=== PATIENT | female | born 1970 | race Caucasian/White ===

== ENCOUNTER 2020-02-09 21:33 | Emergency (ER) | payer OTHER, SELFPAY ==
[2020-02-09 21:56] VITALS: BP 165/96; PULSE 82; RESP 18; TEMP 36.7; O2SAT 96; BMI 37.1
[2020-02-09 22:01] VITALS: RESP 18
--- NOTE | 2020-02-09 22:34 | ED_ITS ---
HPI - Skin/Abscess/Foreign Bdy General: Chief complaint: Skin/Abscess/Foreign Body Stated complaint: spider bite/ painful Time Seen by Provider: 02/09/20 22:15 Source: patient Mode of arrival: ambulatory Limitations: no limitations History of Present Illness: HPI narrative: Patient comes in with an area of swelling and ecchymosis to the right inner upper arm. Patient noted the wound this afternoon when she felt tenderness to that area. Review of Systems General: Reports: 10 or more systems reviewed and unremarkable except in HPI and below Skin/Breast: Reports: changes in skin color Physical Exam Const: COMMON NORMALS: no acute distress and patient oriented x3 GENERAL APPEARANCE: cooperative HENMT: COMMON NORMALS: normocephalic and Normal external nose present HEAD & SCALP: normal to inspection and normocephalic NOSE: Normal external nose present MOUTH: Normal oral and palatal mucosa present Eye: GENERAL EYE: appearance normal, both eyes and all related structures Neck/C-Spine: COMMON NORMALS: full ROM Chest: COMMONS NORMALS: normal inspection of the chest Resp: COMMON NORMALS: normal respiratory effort EFFORT & INSPECTION: Yes able to speak in complete sentences Cardio: COMMON NORMALS: regular rate and regular rhythm RATE: regular rate RHYTHM: regular rhythm GI: COMMON NORMALS: non-tender Back/Pelvis: COMMON NORMALS: thoracic and lumbar spine normal to inspection Extremity: COMMON NORMALS: normal to inspection Neuro: COMMON NORMALS: patient oriented x3 and moves all extremities Psych: COMMON NORMALS: mental status grossly normal and cooperative Skin: NARRATIVE SKIN EXAM: 2 cm ecchymotic area to the right upper arm. With a central crusted lesion. No lymph angina is noted. No fluctuance is noted to the wound. Course Vital Signs: Vital signs: Vital Signs Temperature 98.1 F 02/09/20 21:56 Pulse Rate 82 02/09/20 21:56 Respiratory Rate 18 02/09/20 21:56 Blood Pressure 165/96 02/09/20 21:56 Pulse Oximetry 96 02/09/20 21:56 MDM - Skin/Abscess/Foreign Bdy [facility] Narrative: Medical decision making narrative: Patient presents with a probable insect bite to the right upper arm. Exam notes a 2 cm area of ecchymosis with a central crusted punctate lesion. Vital signs are normal. Patient reports tetanus is up-to-date. Differential diagnosis includes staph infection, insect bite with local reaction, cellulitis, abscess. Reviewed exam with patient recommendations for treatment of triamcinolone mupirocin cream and ointment. Recommended cool compresses to the area and following up with primary care in 3 to 5 days for recheck. Discharge Plan Discharge Patient Disposition: Home Clinical Impression: Insect bite of right upper arm with local reaction Qualifiers: Encounter type: initial encounter Qualified Code(s): S40.861A - Insect bite (nonvenomous) of right upper arm, initial encounter Condition: Stable Prescriptions: New triamcinolone acetonide 0.1 % cream 1 applic TOPICAL BID Qty: 30 RF: 0 mupirocin 2 % ointment 1 applic TOPICAL BID Qty: 22 RF: 0 Discharge Orders: Discharge Order (Routine); Ordered 02/09/20 Ordered By: Germán Velazquez Referrals: Jacob Suggs MD [Primary Care Provider] - Discharge Diet: Usual diet Discharge Activity: Increase activity as tolerated Patient Instructions: Insect Bite or Sting (ED) Activity Restrictions/Additional Instructions: Use acetaminophen and ibuprofen for pain. Use cool compresses to the area for comfort. Use steroid and antibiotic ointment twice a day as directed. Avoid injury to the site. Follow-up with primary care in 3 to 5 days. Return to the emergency department for new concerns. Coding Level of Care Code ED Refractory Worker for Davy Bruno Exam Comprehensive
[2020-02-09] MEDS: triamcinolone 0.1% cream 15 gm 1 APPLIC TOPICAL (23:03)
[2020-02-09] MEDS: mupirocin oint 22 gm 1 APPLIC TOPICAL (23:07)
== END 2020-02-09 23:10 | disposition home or self-care (01) ==
PROVIDERS: Emergency Provider Nurse Practitioner Family; PCP Family Medicine
DX: S40.861A Insect bite (nonvenomous) of right upper arm, initial encounter (principal); W57.XXXA Bitten or stung by nonvenomous insect and other nonvenomous arthropods, initial encounter
CPT/HCPCS: 12345; 99281; 99282

== ENCOUNTER → 2021-03-20 17:30 | Outpatient (BNVA) | payer OTHER, SELFPAY | PROVIDERS: PCP Family Medicine; Visit Provider Nurse Practitioner Family | DX: Z20.822 Contact with and (suspected) exposure to COVID-19 (principal) | CPT/HCPCS: 87635 ==

== ENCOUNTER 2021-08-08 22:16 | Emergency (ER) | payer OTHER, SELFPAY ==
[2021-08-08 22:20] VITALS: BP 158/101; PULSE 94; RESP 20; TEMP 36.5; O2SAT 97; BMI 32.3
--- NOTE | 2021-08-08 22:32 | CTR_ITS ---
PROCEDURE INFORMATION: Exam: CT Head Without Contrast Exam date and time: 08/08/2021 10:32 PM Age: 50 years old Clinical indication: Injury or trauma; Fall; Blunt trauma (contusions or hematomas); Patient HX: Patient fell down stairs at home hitting head on the way down. C/O pain to top and left side of head with neck pain. ; Additional info: Fall down stairs and hit head, no loc TECHNIQUE: Imaging protocol: Computed tomography of the head without contrast. Radiation optimization: All CT scans at this facility use at least one of these dose optimization techniques: automated exposure control; mA and/or kV adjustment per patient size (includes targeted exams where dose is matched to clinical indication); or iterative reconstruction. COMPARISON: No relevant prior studies available. RADIATION DOSE METRICS: Total DLP (mGy-cm): 760.08 FINDINGS: Brain: Normal. No hemorrhage. Unremarkable white matter. No mass effect. Cerebral ventricles: No ventriculomegaly. Paranasal sinuses: Visualized sinuses are unremarkable. No fluid levels. Mastoid air cells: Visualized mastoid air cells are well aerated. Bones/joints: Unremarkable. No acute fracture. Soft tissues: Unremarkable. CT/CT head wo con* [id number] IMPRESSION: No acute intracranial abnormality.
--- NOTE | 2021-08-08 22:32 | XRR_ITS ---
PROCEDURE INFORMATION: Exam: XR Right Wrist Exam date and time: 08/08/2021 10:32 PM Age: 50 years old Clinical indication: Pain; Wrist; Right; Additional info: Fall down stairs wrist pain w/ deformity TECHNIQUE: Imaging protocol: XR Right wrist. Views: 3 or more views. COMPARISON: No relevant prior studies available. FINDINGS: Bones/joints: Displaced ulnar styloid process fracture. Horizontal fracture through the dorsal aspect of the distal radial metaphysis with displaced dorsal fracture fragments. Intra-articular fracture involving the distal radius with displacement of a 2.2 x 1.0 cm fracture fragment dorsally and medially. Soft tissues: Normal. XR/XR wrist RT min 3V* [id number] IMPRESSION: 1. Displaced ulnar styloid process fracture. 2. Horizontal fracture through the dorsal aspect of the distal radial metaphysis with displaced dorsal fracture fragments. 3. Intra-articular fracture involving the distal radius with displacement of a 2.2 x 1.0 cm fracture fragment dorsally and medially.
--- NOTE | 2021-08-08 22:32 | XRR_ITS ---
PROCEDURE INFORMATION: Exam: XR Right Foot Exam date and time: 08/08/2021 10:32 PM Age: 50 years old Clinical indication: Pain; Foot; Right; Additional info: Fall down stairs with mid foot pain TECHNIQUE: Imaging protocol: XR Right foot. Views: 3 or more views. COMPARISON: No relevant prior studies available. FINDINGS: Bones/joints: Slightly displaced 4 mm intra-articular fracture involving the lateral base of the great toe distal phalanx. Soft tissues: Normal. XR/XR foot RT min 3V* [id number] IMPRESSION: Slightly displaced 4 mm intra-articular fracture involving the lateral base of the great toe distal phalanx.
--- NOTE | 2021-08-08 22:32 | CTR_ITS ---
PROCEDURE INFORMATION: Exam: CT Cervical Spine Without Contrast Exam date and time: 08/08/2021 10:32 PM Age: 50 years old Clinical indication: Injury or trauma; Fall; Blunt trauma; Patient HX: Patient fell down stairs at home hitting head on the way down. C/O pain to top and left side of head with neck pain. ; Additional info: Fall down stairs w/ neck pain TECHNIQUE: Imaging protocol: Computed tomography images of the cervical spine without contrast. Radiation optimization: All CT scans at this facility use at least one of these dose optimization techniques: automated exposure control; mA and/or kV adjustment per patient size (includes targeted exams where dose is matched to clinical indication); or iterative reconstruction. COMPARISON: CT head wo con* [id number] 08/08/2021 11:49 PM RADIATION DOSE METRICS: Total DLP (mGy-cm): 546.6 FINDINGS: Bones/joints: Mild to moderate multilevel spine degenerative changes including degenerative disc disease, spondylosis and facet degenerative changes. Discs/Spinal canal/Neural foramina: Multilevel bilateral foraminal stenosis. Lungs: Lung apices are normal. Soft tissues: Unremarkable. CT/CT cervical spin wo con* [id number] IMPRESSION: Multilevel bilateral foraminal stenosis.
--- NOTE | 2021-08-08 22:34 | ED_ITS ---
HPI - Extremity Problem General: Chief complaint: Extremity Injury, Upper Stated complaint: Fall Time Seen by Provider: 08/08/21 22:27 History of Present Illness: Patient is a 50-year-old female comes to the ED after having a fall. Injury occurred just prior to arrival. Patient says she was walking down her steps in her small dog walked under her foot causing her to trip and fall. Patient was approximately 8-9 steps up above the ground in her house. She fell and the top of her head hit the wall. She denies any loss of consciousness but states she did see stars. Here in the ED she has pain at the top of her head, neck pain, right wrist pain and right foot pain. She stat es that the pain at the top of her head is bothering her the most right now. She has a visible deformity to right wrist. Pain is rated a 10 out of 10. She is not on any blood thinners. Denies any neurological symptoms such as vision changes, numbness tingling to face or extremities or any weakness to extremities. Right foot pain is located in the midfoot. She did not take anything for pain before coming to the ED. Associated symptoms: Deny chest pain, fever(s) or rash Review of Systems Const: Denies: fever(s), chills or fatigue Eyes: Denies: change in vision or eye discomfort ENMT: Denies: throat pain, odynophagia, nasal discharge or nasal congestion Card: Denies: chest pain, palpitations, edema, swelling of feet/ankles, dyspnea on exertion or orthopnea Resp: Denies: dyspnea, productive cough or non-productive cough GI: Denies: abdominal pain, nausea, vomiting, diarrhea, constipation or hematochezia : Denies: flank pain, dysuria or hematuria Musc: Reports: neck pain, extremity pain (right wrist and right mid foot) and deformity (right wrist); Denies: back pain or extremity swelling Skin/Breast: Denies: rash or new lesions Neuro: Reports: headache(s) (Pain on top of head); Denies: numbness in extremities or weakness in extremities [facility] ED PFSH: Medical History No pertinent family history Surgical History No pertinent past surgical history Social History Smoking and tobacco status: never smoked Physical Exam Const: COMMON NORMALS: patient oriented x3 and alert GENERAL APPEARANCE: cooperative and comfortable HENMT: COMMON NORMALS: normocephalic HEAD & SCALP: normocephalic and scalp tenderness (Vertex of scalp); no abrasion, no Duke's sign, no laceration and no raccoon eyes FACE & SINUS: normal facial exam MOUTH: Normal oral and palatal mucosa present THROAT: posterior oropharynx normal and uvula midline Eye: COMMON NORMALS: Equal, round and reactive pupils present and conjunctivae normal CONJUNCTIVA: Yes conjunctivae normal PUPIL: Yes Equal, round and reactive pupils present Neck/C-Spine: COMMON NORMALS: supple GENERAL: Yes normal visual inspection CERVICAL SPINE: Yes pain with cervical ROM, Yes Paracervical muscle tenderness left and Yes Trapezius muscle tenderness left Resp: COMMON NORMALS: normal respiratory effort, No retractions, No use of a ccessory muscles and clear to auscultation bilaterally AUSCULTATION: clear to auscultation bilaterally Cardio: COMMON NORMALS: regular rate, regular rhythm, S1 normal heart sound present, S2 normal heart sound present, No gallops present (Cardio), No clicks present (Cardio), No murmurs present (Cardio) and Peripheral pulses 2+ throughout RATE: regular rate RHYTHM: regular rhythm HEART SOUNDS: S1 normal heart sound present and S2 normal heart sound present PERIPHERAL PULSES: Peripheral pulses 2+ throughout GI: COMMON NORMALS: Normal to inspection, nondistended, normoactive bowel sounds present, Soft to palpation, non-tender and no masses PALPATION: Yes Soft to palpation : COMMON NORMALS: Yes no CVA tenderness BLADDER/KIDNEY EXAM: Yes no CVA tenderness Back/Pelvis: COMMON NORMALS: no CVA tenderness Extremity: GENERAL: Yes normal exam except as noted RIGHT UPPER EXTREMITY: Yes wrist Right wrist: Yes inspection (Ecchymosis, swelling and visible deformity), Yes palpation (Tenderness over radial and ulnar aspect of wrist), Yes ROM (No range of motion due to pain) and Yes neurovascular exam (Intact) RIGHT LOWER EXTREMITY: Yes foot & digits Right foot and digits: Yes inspection (No visible deformity, ecchymosis or swelling seen), Yes palpation (Tenderness over midfoot), Yes ROM (Full range of motion) and Yes neurovascular exam (Neurovascular intact.) Neuro: COMMON NORMALS: patient oriented x3, CN's II-XII intact bilaterally, moves all extremities, no focal motor deficits and no sensory deficits noted SENSORIUM/ORIENTATION: Yes alert SENSORY EXAM: Yes extremities (intact) MOTOR EXAM: 5/5 motor strength present throughout Skin: GENERAL SKIN EXAM: dry skin Course Vital Signs: Vital signs: Vital Signs Temperature 97.8 F 08/09/21 00:56 Pulse Rate 88 08/09/21 00:56 Respiratory Rate 18 08/09/21 00:56 Blood Pressure 146/89 08/09/21 00:56 Pulse Oximetry 98 08/09/21 00:56 MDM - Extremity (Nontraumatic) Medical Decision Making Patient is a 50-year-old female comes to the ED after having a fall. She fell her steps after she tripped over her dog. Denies any loss of consciousness or any neurological symptoms. She has pain in right wrist, right foot, top of head and neck pain. Vitals are stable. Exam shows right wrist with a visible deformity but is neurovascular tact. Neuro exam was normal. She has some tenderness over the vertex of her scalp but no other head and face exam findings. He has some left paracervical muscle tenderness upon palpation. X- ray of right foot showed distal phalanx fracture of great toe. X-ray of right ribs showed a nondisplaced distal radius and ulnar styloid fracture. CT of head showed no acute findings. CT of cervical spine showed multilevel bilateral foraminal stenosis. Patient is not having any pain or numbness or tingling down into upper extremities. Patient lives in [place] and is only here visiting. I placed an order with case management for patient to be referred to Ortho spine/neurosurgeon for cervical bilateral foraminal stenosis, orthopedic follow- up for the wrist fracture and podiatry follow-up for the great toe fracture. Patient was put in a sugar tong splint of her right wrist, stiff soled shoe on right foot and discharged home. Patient was sent home with a prescription for methocarbamol and hydrocodone. Return to ED precautions given. Patient was told to make sure she gets set up for Ortho, orthospine and podiatry follow-ups when she gets back to [place]. Patient understood and agreed with plan. Lab Data Radiology Impressions Cervical Spine CT 08/08/21 22:32 IMPRESSION: Multilevel bilateral foraminal stenosis. Foot X-Ray 08/08/21 22:32 IMPRESSION: Slightly displaced 4 mm intra-articular fracture involving the lateral base of the great toe distal phalanx. Head CT 08/08/21 22:32 IMPRESSION: No acute intracranial abnormality. Wrist X-Ray 08/08/21 22:32 IMPRESSION: 1. Displaced ulnar styloid process fracture. 2. Horizontal fracture through the dorsal aspect of the distal radial metaphysis with displaced dorsal fracture fragments. 3. Intra-articular fracture involving the distal radius with displacement of a 2.2 x 1.0 cm fracture fragment dorsally and medially. Discharge Plan Discharge Patient Disposition: Home Clinical Impression: Fracture of wrist, Closed fracture of great toe of right foot, Foraminal stenosis of cervical region Condition: Stable Prescriptions: New methocarbamol 750 mg tablet 750 mg PO Q8H PRN (Reason: muscle pain and spasms) Qty: 20 0RF No Action bupropion HCl 300 mg tablet extended release 24 hr 300 mg PO QAM 0RF levothyroxine [Synthroid] 125 mcg tablet 125 mcg PO DAILY 0RF valacyclovir 500 mg tablet 500 mg PO BID 0RF venlafaxine 150 mg capsule,extended release 24hr 150 mg PO DAILY 0RF Discharge Orders: Discharge ED (Routine); Ordered 08/09/21 Ordered By: Michael Cano Referrals: Jacob Suggs MD [Primary Care Provider] - Discharge Diet: Regular Discharge Activity: Limit activity as instructed Patient Instructions: Wrist Fracture in Adults (ED), Cervical Spinal Stenosis (ED), Degenerative Disc Disease (ED), Opioid Safety Activity Restrictions/Additional Instructions: Follow-up with medical provider as directed. Case management should be contacting you in the next several days to set up an appoint with orthopedic, legal administrative secretary and Dr. Santos the orthospine doctor for follow-up further management of injuries. Take medications as prescribed. Return to the ER or your medical provider if condition worsens. Please read and understand discharge instructions. Thank you for choosing [facility] for your healthcare needs today. Please realize this is an emergency room and that we are providing you with a medical screening exam and this may not be complete and all inclusive of all the testing and or work up that you may need to determine your ailment or severity of your illness. It is very important that you follow up as instructed or that you return to the Emergency Department should you have concerns or if your condition changes or worsens in any way. Coding Level of Care Code ED Tooth Cutter Clutch for Davy Bruno Exam Comprehensive
[2021-08-08] MEDS: HYDROcodone-acetaminophen 7.5-325 mg Tablet 1 TAB PO (22:37)
--- NOTE | 2021-08-08 22:40 | PC.NURSE ---
xray at bedside
--- NOTE | 2021-08-08 23:38 | PC.NURSE ---
patient placed in sugar tong splint to right upper extremity with no complications. Cap refill <3 post procedure. patient handled procedure well.
[2021-08-09] MEDS: cyclobenzaprine 10 mg Tablet PO (00:51)
[2021-08-09] MEDS: HYDROcodone-acetaminophen 7.5-325 mg Tablet 1 TAB PO (00:51)
[2021-08-09 00:56] VITALS: BP 146/89; PULSE 88; RESP 18; TEMP 36.6; O2SAT 98
--- NOTE | 2021-08-11 09:39 | DCPLANNER ---
Addendum entered by Nguyen Thapa 08/12/21 07:09: senior site manager was contacted from ortho stating that when clinic called patient to schedule a follow up appointment, that patient is following up when she gets home. Original Note: senior site manager had message to schedule a follow up appointment for patient with ortho. senior site manager called the ortho clinic, spoke with Nicol, gave clinic patients information. senior site manager was told that patients information would be printed and reviewed. Clinic will call patient with appointment information.
== END 2021-08-09 00:58 | disposition home or self-care (01) ==
PROVIDERS: Emergency Provider Physician Assistant; PCP Family Medicine
DX: S52.611A Displaced fracture of right ulna styloid process, initial encounter for closed fracture (principal); S52.501A Unspecified fracture of the lower end of right radius, initial encounter for closed fracture; S92.401A Displaced unspecified fracture of right great toe, initial encounter for closed fracture; W10.8XXA Fall (on) (from) other stairs and steps, initial encounter; R51.9 Headache, unspecified; M48.02 Spinal stenosis, cervical region
CPT/HCPCS: 29125; 70450; 72125; 73110; 73630; 99283

== ENCOUNTER 2022-08-15 15:43 | Emergency (ER) | payer OTHER, SELFPAY ==
[2022-08-15 16:05] VITALS: BP 156/101; PULSE 104; TEMP 36.7; O2SAT 97; BMI 37.1
--- NOTE | 2022-08-15 16:09 | XRR_ITS ---
PROCEDURE INFORMATION: Exam: XR Left Wrist Exam date and time: 08/15/2022 4:18 PM Age: 51 years old Clinical indication: Injury or trauma; Fall; Blunt trauma (contusions or hematomas); Wrist; Left; Additional info: Trauma TECHNIQUE: Imaging protocol: Radiologic exam of the left wrist. Views: 3 or more views. COMPARISON: No relevant prior studies available. FINDINGS: Bones/joints: Comminuted, mildly displaced intra-articular fracture of the distal left radius. The fracture is mildly impacted with mild dorsal angulation. Mildly comminuted and minimally displaced fracture of the left ulnar styloid. No dislocation. Normal bone mineralization. No joint effusion. Joint spaces are maintained. Soft tissues: Moderate soft tissue swelling at the distal left forearm and wrist. No radiopaque foreign body. XR/XR wrist LT min 3V* [id number] IMPRESSION: 1. Comminuted, mildly displaced intra-articular fracture of the distal left radius. The fracture is mildly impacted with mild dorsal angulation. 2. Mildly comminuted and minimally displaced fracture of the left ulnar styloid. 3. Moderate soft tissue swelling at the distal left forearm and wrist.
[2022-08-15] MEDS: ondansetron 4 MG Tablet PO (17:30)
[2022-08-15] MEDS: HYDROcodone-acetaminophen 5-325 mg Tablet 1 TAB PO (17:30)
--- NOTE | 2022-08-15 17:36 | ED_ITS ---
HPI - Extremity Problem General: Chief complaint: Extremity Injury, Upper Stated complaint: Left hand injury, Fall Time Seen by Provider: 08/15/22 16:34 Source: patient Mode of arrival: ambulatory Limitations: no limitations History of Present Illness: Patient presents emergency department today company by family for evaluation treatment of left wrist pain and swelling. Patient reports she was rollerskating and fell backwards-attempting to catch herself on an outstretched arm behind her back. Patient states she landed on concrete. She had immediate pain and developed swelling soon after. Patient retains movement of the fingers and sensation. Review of Systems General: Reports: 10 or more systems reviewed and unremarkable except in HPI and below Musc: Reports: extremity pain, extremity swelling, joint pain and joint swelling PFSH ED PFSH: Medical History No pertinent family history Surgical History No pertinent past surgical history Social History Smoking and tobacco status: never smoked Physical Exam Const: COMMON NORMALS: no acute distress, patient oriented x3 and alert HENMT: COMMON NORMALS: normocephalic, atraumatic and hearing grossly normal bilaterally HEAD & SCALP: normocephalic and atraumatic Eye: COMMON NORMALS: Equal, round and reactive pupils present, EOMs intact bilaterally and conjunctivae normal CONJUNCTIVA: Yes conjunctivae normal PUPIL: Yes Equal, round and reactive pupils present Neck/C-Spine: COMMON NORMALS: full ROM and no JVD Lymph: LYMPHATIC: no lymphadenopathy noted Resp: COMMON NORMALS: normal respiratory effort, No retractions and No use of accessory muscles Cardio: COMMON NORMALS: no JVD and regular rate RATE: regular rate Extremity: NARRATIVE EXTREMITY EXAM: Patient's left wrist is circumferentially swollen with tenderness circumferentially as well. Decreased to no mobility to the left wrist. Full mobility of the fingers on the left hand. Nontender to the left elbow with full range of motion. Neuro: COMMON NORMALS: patient oriented x3 SENSORIUM/ORIENTATION: Yes alert Psych: COMMON NORMALS: mental status grossly normal, Normal thought process present, cooperative and normal affect THOUGHT PROCESS: Normal thought process present Skin: COMMON NORMALS: no rashes or lesions noted and turgor normal GENERAL SKIN EXAM: no rashes or lesions noted and turgor normal Course Vital Signs: Vital signs: Vital Signs Temperature 98.1 F 08/15/22 16:05 Pulse Rate 104 H 08/15/22 16:05 Blood Pressure 156/101 08/15/22 16:05 Pulse Oximetry 97 08/15/22 16:05 Oxygen Delivery Me thod 08/15/22 16:05 MDM - Extremity (Nontraumatic) Medical Decision Making Patient presented the emergency department today for evaluation treatment of injury to the left wrist. X-ray indicated a comminuted distal left radius fracture with dorsal angulation. There was concern about moving the bone pieces back due to the amount of comminuted pieces so, Ortho was consulted. Ortho indicated patient would require surgery and recommended a volar splint, appointment on Wednesday, and potential surgery on Wednesday or Wednesday. Patient was notified. Patient is relatively pain medication na?ve and states she often gets nauseated. We will treat with a [place] 5 and antinausea medication. She can use these before bed if needed if pain is manageable through the day. Patient was given instructions for swelling and splint management. DDX: wrist fracture, wrist sprain, Colles fracture, elbow fracture, carpal fracture Lab Data Radiology Impressions Wrist X-Ray 08/15/22 16:09 IMPRESSION: 1. Comminuted, mildly displaced intra-articular fracture of the distal left radius. The fracture is mildly impacted with mild dorsal angulation. 2. Mildly comminuted and minimally displaced fracture of the left ulnar styloid. 3. Moderate soft tissue swelling at the distal left forearm and wrist. Discharge Plan Discharge Patient Disposition: Home Clinical Impression: Fracture of wrist, closed Condition: Stable Prescriptions: New ondansetron 4 mg tablet,disintegrating 4 mg PO Q8H 5 Days Qty: 15 0RF No Action bupropion HCl 300 mg tablet extended release 24 hr 300 mg PO QAM levothyroxine [Synthroid] 125 mcg tablet 125 mcg PO DAILY valacyclovir 500 mg tablet 500 mg PO BID venlafaxine 150 mg capsule,extended release 24hr 150 mg PO DAILY methocarbamol 750 mg tablet 750 mg PO Q8H PRN (Reason: muscle pain and spasms) Qty: 20 0RF Discharge Orders: Discharge ED (Routine); Ordered 08/15/22 Ordered By: Harriett Vergara Discharge Diet: Usual diet Discharge Activity: Increase activity as tolerated Patient Instructions: Wrist Fracture in Adults (ED), Opioid Safety Activity Restrictions/Additional Instructions: Xrays today showed a significant fracture to your left distal radius. There are several pieces acting her ability to reposition the end of this bone. After speaking to orthopedics they would like to see you for an appointment on Wednesday and should expect to have surgery on Wednesday or Wednesday. We are putting you into a splint. I am also providing you with a sling to help support the weight of your splint and keep your hand elevated to prevent swelling. We are giving you antinausea medication and a short course of some pain medicine to help with your discomfort-if necessary, you can save this for before bed to help you sleep. If you notice any significant swelling in your fingers, tingling or numbness or decreased ability to move your fingers you need to be seen again for readjustment of your splint. Coding Level of Care Code ED [employer] for Davy Bruno
[2022-08-15] MEDS: morphine 4 mg/mL SDV 1 mL IM (18:06)
--- NOTE | 2022-08-17 11:32 | DCPLANNER ---
Addendum entered by Nguyen Thapa 08/18/22 14:18: Patient had a follow up appointment scheduled with ortho - patient did attend appointment. Original Note: sales development manager had message to schedule a follow up appointment for patient with ortho. sales development manager sent patients information to the front office staff at ortho. Patients information will be printed and reviewed. Clinic will call patient with appointment information.
== END 2022-08-15 18:41 | disposition home or self-care (01) ==
PROVIDERS: Emergency Provider Physician Assistant
DX: S52.572A Other intraarticular fracture of lower end of left radius, initial encounter for closed fracture (principal); S52.612A Displaced fracture of left ulna styloid process, initial encounter for closed fracture; W18.39XA Other fall on same level, initial encounter; Y93.51 Activity, roller skating (inline) and skateboarding
CPT/HCPCS: 73110; 96372; 99284; J2270; Q0162

== ENCOUNTER 2022-08-17 15:58 | Outpatient (CLI) | payer OTHER, SELFPAY ==
--- NOTE | 2022-08-17 16:00 | CTR_ITS ---
PROCEDURE INFORMATION: Exam: CT Left Upper Extremity Without Contrast, Wrist Exam date and time: 08/17/2022 4:15 PM Age: 51 years old Clinical indication: Injury or trauma; Other: Fall while skating; Blunt trauma (contusions or hematomas); Wrist; Left; Injury date: 08/15/22; Injury details: Skating fall on outstretched hand 08-15-22; Additional info: Wrist fracture TECHNIQUE: Imaging protocol: Computed tomography of the left upper extremity without contrast. Exam focused on the wrist. Radiation optimization: All CT scans at this facility use at least one of these dose optimization techniques: automated exposure control; mA and/or kV adjustment per patient size (includes targeted exams where dose is matched to clinical indication); or iterative reconstruction. REPORTING DATA: Count of CT and Cardiac NM exams in prior 12 months: This patient has received 0 known CTs and 0 known cardiac nuclear medicine studies in the 12 months prior to the current study. COMPARISON: CR ([facility], ) 08/15/2022 4:18 PM RADIATION DOSE METRICS: Total DLP (mGy-cm): 96.26 FINDINGS: Bones/joints: Mildly comminuted and impacted fracture seen involving the distal metaphysis of the left radius at the wrist, with component of extension of the fracture to the articular surface of the radiocarpal joint. Mild apex angulation ventrally on the sagittal images. Mildly displaced avulsion fracture of the ulnar styloid is also seen. No fracture seen about the carpal bones. No dislocation is seen about the wrist joints. No findings to indicate loose body or joint mouse. Soft tissues: Soft tissue windows demonstrate soft tissue swelling. CT/CT wrist LT wo con* [id number] IMPRESSION: Mildly comminuted and impacted fracture distal metaphysis of the left radius with intra-articular extension component, with mild apex ventral angulation on the sagittal images, with an associated mildly displaced avulsion fracture of the ulnar styloid with associated soft tissue swelling or edema, as noted above.
== END 2022-08-17 15:59 | disposition home or self-care (01) ==
LOC: RAD 16:03
PROVIDERS: PCP Family Medicine; Visit Provider Student in an Organized Health Care Education/Training Program
DX: S62.102A Fracture of unspecified carpal bone, left wrist, initial encounter for closed fracture (principal); S52.592A Other fractures of lower end of left radius, initial encounter for closed fracture; X58.XXXA Exposure to other specified factors, initial encounter
CPT/HCPCS: 73200

== ENCOUNTER 2022-08-18 10:16 | Day surgery (SDC) | payer OTHER, SELFPAY ==
--- NOTE | 2022-08-18 | XR_ITS ---
WS: [id number] XR wrist LT 2V [id number] REASON FOR EXAM: AVANI PICS FINDINGS: Plate and screw fixation of distal transverse radial metaphyseal fracture with extension into the rad iocarpal joint. Fracture fragments and surgical appliances are in proper position and alignment. XR/XR wrist LT 2V [id number] IMPRESSION: Left wrist fracture with fixation as above.
[2022-08-18 10:52] VITALS: BP 139/88; PULSE 86; RESP 18; TEMP 36.4; O2SAT 94; BMI 37.1
--- NOTE | 2022-08-18 11:02 | W.PM.OPSUD ---
Surgery/Procedure H&P Update DATE OF PROCEDURE: August 18, 2022 DATE H&P PERFORMED: 08/17/22 CHANGES TO PREVIOUS DOCUMENTATION: None. CT scan of the left wrist was reviewed intra-articular displaced distal radius fracture noted. Patient has an intact volar ulnar corner there is the dorsal cortex with an ulnar fracture fragment that is displaced. Ultimately the main fracture line should be amendable to a volar plate fixation with an appropriate spread of distal locking screws. Plan will be to proceed with a volar distal radius plate ORIF left distal radius. Patient understands agrees with current plan. All questions answered. She understands the risk benefits complication alternatives surgical and nonsurgical treatment options understanding her risk for surgery she agrees to proceed. PREOP DIAGNOSIS: Left displaced intra-articular distal radius fracture PRIMARY INDICATION FOR PROCEDURE: Left displaced intra-articular distal radius fracture PLANNED PROCEDURE: Operation Date: 08/18/22 12:20 Proposed Procedures p Open reduction internal fixation of the left wrist:88931,S52.502A(Left) - Wilver Cano DO
[2022-08-18] MEDS: acetaminophen 1,000 MG/100 ML PIGGYBACK 400 MG IV (11:11)
[2022-08-18] MEDS: ketorolac 30 mg/mL INJ IVP (11:11)
[2022-08-18] MEDS: scopolamine 1.5 Patch 1 PATCH TRANSDERMA (11:11)
[2022-08-18] MEDS: sodium chloride 0.9% 1,000 ML 30 ML IV (11:12)
[2022-08-18 11:15] LABS: Basophils % 0.6 %; Eosinophils # 0.2 10^3/uL (0.0-0.8); Eosinophils % 3.1 %; Hematocrit 41.8 % (37.0-47.0); Hemoglobin 13.8 g/dL (11.5-15.3); Lymphocytes # 1.2 10^3/uL (0.8-4.8); Mean Corpuscular Hemoglobin 30.7 pg (28.0-34.0); Mean Corpuscular Volume 92.9 fl (81-99); Mean Platelet Volume 9.3 fL (7.4-10.4); Monocytes # 0.4 10^3/uL (0.2-0.9); Monocytes % 8.5 %; Neutrophils # 3.34 10^3/uL (1.8-7.7); Neutrophils % 64.6 %; Nucleated Red Blood Cells % 0 %; Platelet Count 355 10^3/cmm (130-400); Red Cell Distribution Width 12.5 % (12.1-15.1); White Blood Count 5.2 10^3/uL (4.0-10.0)
[2022-08-18 11:29] LABS: Blood Urea Nitrogen 16 mg/dL (6-20); Calcium 8.5 mg/dL (8.5-10.5); Carbon Dioxide 30 mmol/L (22-29); Chloride 102 mmol/L (98-107); Glomerular Filtration Rate 75.9 mL/min (90-130); Glucose 113 mg/dL (65-115); Osmolality Calculated 292 mOsm/kg (285-295); Sodium 140 mmol/L (136-145)
[2022-08-18] MEDS: ceFAZolin 2,000 MG in sodium chloride 0.9% (plus) 50 ML 100 MG IV (12:54)
--- NOTE | 2022-08-18 13:32 | P.ANESASSM_ITS ---
Pre-Anesthetic Assessment Height/Weight: Height 1.68 m Weight 104.326 kg Temp Pulse Resp BP Pulse Ox O2 Del Method 97.5 F L 86 18 139/88 94 08/18/22 10:52 08/18/22 10:52 08/18/22 10:52 08/18/22 10:52 08/18/22 10:52 08/18/22 10:52 Preop Diagnosis: Left displaced intra-articular distal radius fracture Operation Date: 08/18/22 12:20 Proposed Procedures p Open reduction internal fixation of the left wrist:79653,S52.502A(Left) - Wilver Cano DO Familial anesthetic complications: PONV Was Beta Elizabeth taken within 24 hours: N/A Was Clonidine taken within 24 hours: N/A Last intake: Intake Last Liquid Date 08/17/22 Last Liquid Time 07:00 Last Solid Date 08/17/22 Last Solid Time 21:00 Social No alcohol and No tobacco Exam alert, oriented x 3, clear to auscultation bilaterally and regular rate & rhythm Airway Submandibular: within normal limits Cervical ROM: within normal limits Mallampati: Class II Dentition: full Metabolic Morbid Obesity and Thyroid Disease Neuropsych Anxiety and Depression Anesthetic Plan ASA status: 2 Anesthesia: MAC and Regional (specify below) (Left interscalene nerve blk) Medications/Allergies Home Medications Medication Instructions Recorded Confirmed Last Taken Type bupropion HCl 300 mg 24 hr tablet, 300 mg PO QAM 03/20/21 08/18/22 08/17/22 History extended release valacyclovir 500 mg tablet 500 mg PO BID 03/20/21 08/18/22 08/17/22 History venlafaxine 150 mg 150 mg PO DAILY 03/20/21 08/18/22 08/17/22 History capsule,extended release 24 hr ondansetron 4 mg disintegrating 4 mg PO Q8H 5 days #15 tabs 08/15/22 08/18/22 08/17/22 Rx tablet thyroid (pork) 90 mg tablet 90 mg PO DAILY 08/16/22 08/18/22 08/17/22 History ([place] Thyroid) oxycodone-acetaminophen 7.5 mg-325 1 tab PO Q6H PRN pain 7 days #28 08/18/22 Unknown Rx mg tablet (Percocet) tabs Allergies Allergy/AdvReac Type Severity Reaction Status Date / Time diazepam [From Valium] Allergy Unknown Verified 08/17/22 14:29 fentanyl Allergy Unknown Verified 08/17/22 14:29 [From Sublimaze (PF)] methohexital [From Brevital] Allergy Unknown Verified 08/17/22 14:29 prochlorperazine Allergy Unknown Verified 08/17/22 14:29 [From Compazine] Current Medications Generic Name Dose Route Start Last Admin Trade Name Freq PRN Reason Stop Dose Admin Sodium Chloride 1,000 mls @ 30 mls/hr 08/18/22 10:30 08/18/22 11:12 Sodium Chloride 0.9% IV 08/19/22 10:29 30 mls/hr .Q24H ALTON Administration PFSH Anesthesia Medical History (Updated 08/18/22 @ 10:48 by Daniela Ruiz) Closed fracture of left distal radius No pertinent family history Surgical History (Updated 08/18/22 @ 10:48 by Daniela Ruiz) No pertinent past surgical history Social History Smoking and tobacco status: never smoked Data Anesthesia 08/18/22 11:03 08/18/22 11:03 Short CBC 08/18/22 Range/Units 11:03 WBC 5.2 (4.0-10.0) 10^3/uL Hgb 13.8 (11.5-15.3) g/dL Hct 41.8 (37.0-47.0) % MCV 92.9 (81-99) fl Plt Count 355 (130-400) 10^3/cmm Neut % (Auto) 64.6 % Neut # (Auto) 3.34 (1.8-7.7) 10^3/uL BMP 08/18/22 11:03 Sodium 140 Potassium 4.0 Chloride 102 Carbon Dioxide 30 H BUN 16 Creatinine 0.8 Glucose 113 Calcium 8.5 Cardiac Studies: No Data to Display Anesthesia Procedures Nerve Block Nerve Block 1: Main Anesthesia: other (MAC) Time Out Performed: Yes Consent: requested by attending/covering physician, from patient, risks and benefits reviewed and patient agrees to proceed Nerve block location: interscalene (Left) Anesthesia monitors applied: pulse oximetry, EKG, BP cuff and oxygen Nerve block position: semi sitting Anesthetic Used: ropivicaine 0.5% Amount of anesthesia used (mL): 30 Ultrasound used to: recognize landmarks and visualize and ID brachial plexus Nerve Stimulator Used?: No Interscalene/Femoral BLK: 2 stimuplex 22 g needle used for position and inplane approach Injection: neg aspiration of heme Patient Tolerated Procedure: well Complications: none
[2022-08-18 14:28] VITALS: BP 162/52; PULSE 79; RESP 14; TEMP 36.1; O2SAT 97
[2022-08-18 14:33] VITALS: BP 167/82; PULSE 78; RESP 16; O2SAT 95
[2022-08-18 14:38] VITALS: BP 155/86; PULSE 69; RESP 17; TEMP 36.3; O2SAT 94
--- NOTE | 2022-08-18 14:49 | ANE.PACU2 ---
Inpatient post-anesthesia follow up: Airway intact: Yes Vital signs: Temperature 97.4 F Pulse Rate 69 Respiratory Rate 17 Blood Pressure 155/86 Pulse Oximetry 94 Oxygen Delivery Me thod Room Air Oxygen Flow Rate Fraction of Inspir ed Oxygen Hydration adequate: Yes Nausea and vomiting: No Pain level: 1 Mental status: Baseline
[2022-08-18 14:50] VITALS: BP 155/96; PULSE 78; RESP 18; O2SAT 93
[2022-08-18 15:06] VITALS: BP 176/96; PULSE 68; RESP 18; O2SAT 96
--- NOTE | 2022-08-18 15:13 | P.OP_ITS ---
Brief Operative Note Date of procedure: 08/18/22 Pre-op diagnosis: Displaced and angulated left distal radius intra-articular f racture Post-op diagnosis: same (With ulnar styloid fracture) Procedure Done: Left distal radius open reduction internal fixation 3 part intra-articular Closed treatment left ulnar styloid fracture Surgeon: Wilver Cano Estimated blood loss (mL): 5 Complications: None Post-op Plan: Patient taken to PACU in stable condition recovering well. Patient will receive appropriate discharge instruction as well as pain medication postoperatively. Patient to be in splint until follow-up. Nonweightbearing left upper extremity. Ice and elevate as needed. We will follow-up with me in the office in 2 weeks. Condition: stable Disposition: same day Coding Level of Care Code Acute Code for Davy Bruno
--- NOTE | 2022-08-18 15:14 | PM.PACU ---
PACU note Narrative: Patient taken to PACU in stable condition recovering well. Regional anesthetic on in place unable to assess motor or sensory. Brisk capillary refill less than 2 seconds. Splint on in place left upper extremity. Splint is clean dry and intact. Exam: awake Disposition: discharged
--- NOTE | 2022-08-18 15:31 | P.OP_ITS ---
Operative Report Date of procedure: August 19, 2022 Pre-op diagnosis: Preop Diagnosis Left displaced intra-articular distal radius fracture Left ulnar styloid fracture Procedure: Post-op diagnosis: Same Procedure done: Left distal radius open reduction internal fixation, intra-articular 3 part Closed treatment left ulnar styloid fracture Implants: Left distal radius: Arthrex 3-hole standard volar distal radius plate with 5 locking screws distally 2.4 mm, 2 proximal locking screws and 1 cortical screw 3.5 mm proximally Surgeon: Wilver Cano DO Estimated blood loss: 5mL Tourniquet time: 44 minutes IV fluids: See anesthesia record Complications: None Condition: stable Disposition: Same-day Brief History: Patient was seen and worked up in the outpatient setting after sustaining a ground-level fall on outstretched left wrist. sHe was found to have a displaced and angulated intra-articular left distal radius fracture. Images reviewed at the outpatient setting with patient confirm preoperative diagnosis. We talked about treatment options as far as nonoperative and operative intervention. We talked about the risk benefits complication alternatives to surgical and nonsurgical treatment options. Through shared decision making with goals for earlier wrist mobility as well as improvement in alignment and better functional longevity given her younger age recommend surgical intervention left distal radius open reduction internal fixation. We did have a CT scan performed to evaluate intra-articular fracture fragments. Predominantly was found to have 3 part intra-articular fracture pattern. Through shared decision making she she elects to proceed with surgical intervention she understands the risk benefits complication alternatives to surgical treatment options and elects to proceed. All questions answered. Procedure: Patient seen and evaluated in the preoperative holding area.? Consent reviewed and signed with patient.? Correct extremities were marked and consent was reviewed and signed.? She was seen and evaluated by anesthesia department. Underwent regional anesthesia. Once cleared for surgery she was taken back to the operative suite.? Patient was then transported into the operative suite transferred furred to an OR table all bony prominences well-padded patient was appropriate secured to bed in supine position.? An armboard was applied to the left upper extremity.? The left upper extremity had a nonsterile tourniquet applied to the left upper arm.? She subsequently was then prepped and draped in standard orthopedic fashion she underwent anesthesia per the anesthesia department.? A final timeout was performed.? Patient received appropriate preoperative antibiotics. Esmarch was used exsanguinate the left upper extremity and tourniquet was insufflated to 250 mmHg. A standard modified FCR volar approach was performed to the left distal radius.? Sharp scalpel incision through skin and subcutaneous tissue.? I then switched to Littler dissection scissors identify the FCR tendon releases out of the sheath both proximally and distally mobilized the tendon ulnarly and then subsequently incised the floor of the FCR tendon sheath with care to just incise the floor.? I then bluntly sweep the FPL tendon muscle belly ulnarly and placed blunt self- retaining retractor.? At this point time I direct visualization of the pronator quadratus which was incised in standard 7 fashion off the radial and distal border in the distal radius and fracture site was scraped clean of interposed muscle belly.? I then identified the 3 part intra-articular left distal radius fracture.? This was subsequently opened above and freed of interposing muscle belly as well as periosteum and fracture hematoma. I did have to utilize my [place] which was placed through the fracture pattern and tamp up the dorsal intra-articular comminution fracture fragments. Once this was cleared I then manually performed a reduction maneuver and had appropriate anatomic region of the volar cortex.? This was confirmed with mini C arm in multiple orthogonal imaging.? At this point time I selected a Arthrex anatomic distal radius plate utilizing a standard 3-hole plate which would have appropriate spread to be able to capture the ulnar dorsal fracture fragments.? This was then placed up to the distal radius while maintaining my reduction pins were placed distally and proximally to confirm appropriate placement of the plate along the distal radius.? Minor adjustments were made and once I was satisfied I then subsequently drilled a bicortical 3.5 screw proximally in the oblong hole to allow for appropriate sliding of the distal radius plate appropriately to perfect position on the distal radius.? This had excellent fixation and purchase and brought the plate to bone.? While maintaining my reduction I then confirmed in multiple orthogonal imaging that my plate was in appropriate position.? Once satisfied with my position I then subsequently placed the peek targeting guide on the distal locking screws with Arthrex.? The locking guide was then subsequently loaded and I subsequently drilled and placed a fully threaded cortical screw to compress the plate to bone for the distal fracture fragment.? This was performed with plan to then remove this and placed a shorter locking screw had bicortical fixation with excellent purchase and appropriate reduction of my volar tilt and bringing plate to bone of the distal fragment and plate.? Once I was satisfied with my plate position as well as reduction of the distal radius which was confirmed on AP oblique and lateral imaging I then subsequently drilled measured and placed 4 locking screws around this cortical screw.? Then I subsequently removed the cortical screw and placed a shorter locking screw that did not penetrate the dorsal cortex.? This completed my distal fixation.? I then turned my attention and screwed in the locking guides for my final to screws proximally these were then subsequently drilled measured and appropriate length locking screws were then placed proximally with excellent fixation and locking technology into the plate.? This completed my construct.? The peek guide was subsequently removed and final imaging of the left distal radius open reduction internal fixation was taken of AP lateral as well and is orthogonal imaging.? I then took a inclination view which showed my radial styloid screw was out of the penetration of the joint.? All my distal screws were appropriate length did not penetrate dorsal cortex and did not penetrate the joint.? This completed my fixation. Wrist was then taken through pronation supination and stressed the DR UJ which was found to be stable. Ulnar styloid fracture fragment was left alone. The wound was then thoroughly irrigated.? Tourniquet was then subsequently deflated.? Hemostasis satisfactory with bipolar electrocautery.? I then subsequently placed interrupted 3-0 Vicryl sutures for subcutaneous tissue and then subsequently placed a Monocryl and Steri-Strips for the skin for closure.? Incision was then dressed with 4 x 4's Kerlix cast padding and a volar Ortho- Glass splint was then applied with Rene wrap.?
== END 2022-08-18 15:35 | disposition home or self-care (01) ==
PROVIDERS: PCP Family Medicine; Visit Provider Student in an Organized Health Care Education/Training Program
PROC: (CPT 25609; principal; 2022-08-18 12:00)
DX: S52.572A Other intraarticular fracture of lower end of left radius, initial encounter for closed fracture (principal); S52.612A Displaced fracture of left ulna styloid process, initial encounter for closed fracture; X58.XXXA Exposure to other specified factors, initial encounter; E66.01 Morbid (severe) obesity due to excess calories; Z68.37 Body mass index [BMI] 37.0-37.9, adult
CPT/HCPCS: 25609; 25650; 36415; 73100; 76000; 80048; 85025; 86850; 86900; C1713; J0131; J0690; J1885; J2250; J2704; J2795; J7030

== ENCOUNTER → 2022-09-07 09:09 | Outpatient (BNVA) | payer OTHER, SELFPAY | PROVIDERS: PCP Family Medicine; Visit Provider Student in an Organized Health Care Education/Training Program | DX: S52.502D Unspecified fracture of the lower end of left radius, subsequent encounter for closed fracture with routine healing (principal); S52.613D Displaced fracture of unspecified ulna styloid process, subsequent encounter for closed fracture with routine healing; X58.XXXD Exposure to other specified factors, subsequent encounter | CPT/HCPCS: 73110 ==

== ENCOUNTER 2022-09-07 12:04 | Outpatient (CLI) | payer OTHER, SELFPAY | END 2022-09-07 12:05 | disposition home or self-care (01) | LOC: SPT 12:05 | PROVIDERS: PCP Family Medicine; Visit Provider Student in an Organized Health Care Education/Training Program | DX: Z46.89 Encounter for fitting and adjustment of other specified devices (principal); S52.592D Other fractures of lower end of left radius, subsequent encounter for closed fracture with routine healing; X58.XXXD Exposure to other specified factors, subsequent encounter | CPT/HCPCS: 97760; L3908 ==